=== PATIENT | female | born 1985 | race Caucasian/White ===

== ENCOUNTER 2022-05-22 15:26 | Emergency (ER) | payer OTHER ==
--- OUTSIDE RECORDS SUMMARY | 2022-05-22 15:29 | XMS REPORT | Continuity of Care Document ---
:1985 Author Organization [facility] t Address [address] [place] [id number] Care Team Providers Name Role Phone CHEPE NAVARRO Attending Clinician Unavailable NOEMI TOPETE Attending Clinician Unavailable Lab, Adc Fam Pob I Attending Clinician Unavailable Noemi Kilgore Attending Clinician Black [place] Attending Clinician CHARLEE MEJIA Attending Clinician Unavailable BLACK COOLEY Attending Clinician Unavailable Doctor Unassigned, [place] Attending Clinician Unavailable Payers Payer Name Policy Type Policy Number Effective Date Expiration Date S ozzy BS FED [employer] [id number] 2015 00:00:00 Problems This patient has no known problems. Allergies, Adverse Reactions, Alerts Allergy Allergy Status Severity Reaction(s) Onset Inactive Treating Comm ents Source Name Type Date Date Clinician NO KNOWN Drug Active [facility] ALLERGIE [facility] Social History Social Habit Start Date Stop Date Quantity Comments Source [facility] to SARS-CoV-2 [facility] Smoking Status Start Date Stop Date Source Unknown if ever smoked [facility] Medications This patient has no known medications. Procedures This patient has no known procedures. Encounters Start End Encounter Admission Attending Care Care Encounter Source Date/Time Date/Time Type Type Clinicians Facility Department ID 2020-11-30 2020-11-30 Outpatient R RAMON [facility] [id number] Univers 09:00:00 09:00:00 CHEPE [facility] 2020-03-07 2020-03-07 Outpatient R SUNDEEP [facility] [id number] Univers 15:00:00 15:00:00 NOEMI [facility] 2020-03-07 2020-03-07 Laboratory Lab, [facility] Fam Pob I [facility] [id number]. [id number] Univers 09:10:22 09:30:22 Only Noemi [facility] [id number] [facility] [place] [id number] [place] as Professio [phone] [facility] [address] 2020-02-29 2020-02-29 Laboratory Lab, Adc Fam Pob I [facility] [id number]. [id number] Univers 16:34:24 16:54:24 Only Black Cooley [facility] [id number] [facility] [id number] [place] as Professio [phone] [facility] [address] [facility] 2020-02-29 2020-02-29 Outpatient R JACKIE [facility] [id number] Univers 16:20:00 16:20:00 CHARLEE brown of [facility] 2020-02-29 2020-02-29 Outpatient R VALERIE [facility] [id number] Univers 16:20:00 16:20:00 BLACK brown o f [facility] 2020-02-29 2020-02-29 Letter Doctor ASHLEY [id number] Univers 00:00:00 00:00:00 (Out) Unassigned, AURELIO [id number] [facility] [place] [facility] [id number] [place]is as [phone] [place] [address] Branch Results This patient has no known results.
[2022-05-22] MEDS ORDERED: NA CHLORIDE 0.9% 1,000 ML ONE (16:06)
[2022-05-22] MEDS ORDERED: MORPHINE 2 MG/ML SYR ONE ×2 (16:06→18:12)
[2022-05-22 16:24] LABS: Hematocrit 30.5 % (36.0-45.0); Lymphocytes % 8.3 % (15.3-44.8); MCV 92.2 fL (80-100); MPV 6.6 fL (7.6-11.3); RBC Red Blood Cell Count 3.31 M/uL (3.86-4.86)
[2022-05-22 16:31] LABS: Urine Blood Trace-intact (Negative); Urine Glucose Negative (Negative); Urine Protein Negative (Negative)
[2022-05-22 16:37] LABS: Albumin 2.1 g/dL (3.4-5.0); Bilirubin Total 0.3 mg/dL (0.2-1.0)
[2022-05-22 16:39] LABS: Potassium 2.9 mmol/L (3.5-5.1)
[2022-05-22 16:40] LABS: Urine Bacteria None Seen /HPF (<20); Urine RBC <5 /HPF (None Seen)
--- NOTE | 2022-05-22 17:58 | RAD REPORT ---
EXAM DESCRIPTION: CTAbdomen Pelvis W Contrast - 05/22/2022 5:29 pm CLINICAL HISTORY: Abdominal pain. RLQ PAIN COMPARISON: No comparisons TECHNIQUE: Biphasic CT imaging of the abdomen and pelvis was performed with 100 ml non-ionic IV cont rast. All CT scans are performed using dose optimization technique as appropriate and may include automated exposure control or mA/KV adjustment according to patient size. FINDINGS: The lung bases are clear.Gallbladder distension. The liver, spleen, pancreas, adrenal glands and kidneys are within normal limits. No bowel obstruction, free air, free fluid or abscess. Significantly enlarged uterus compatible with status. The appendix is normal. No evidence of significant lymphadenopathy. No suspicious bony findings. IMPRESSION: Enlarged and edematous uterus. Gallbladder distension.
--- NOTE | 2022-05-22 19:15 | RAD REPORT ---
EXAM DESCRIPTION: US - Abdomen Exam Limited - 05/22/2022 6:39 pm CLINICAL HISTORY: ABD PAIN COMPARISON: No comparisons FINDINGS: The gallbladder demonstrates no gallstones. No pericholecystic fluid or gallbladder wall t hickening. The common bile duct is normal measuring 2 mm. The liver demonstrates no findings of intrahepatic biliary dilatation. IMPRESSION: Unremarkable examination.
[2022-05-22] MEDS ORDERED: HYDROCODONE/APAP 7.5/325 MG TAB ONE (19:25)
[2022-05-22] MEDS ORDERED: KETOROLAC 30 MG/ML INJ ONE (19:25)
[2022-05-22] MEDS ORDERED: POTASSIUM 25 MEQ EFFERV TAB ONE (19:25)
[2022-05-22 20:24] VITALS: TEMP 97.7
[2022-05-22 20:25] VITALS: O2SAT 98
[2022-05-22 20:26] VITALS: BP 143/78
--- NOTE | 2022-05-26 13:16 | EKG ---
Test Date: 2022-05-22 Test Time: 17:43:56 [employer] Sprayer: JACOB MEASUREMENT RESULTS: Intervals: Rate: 91 AR: 144 QRSD: 80 QT: 338 QTc: 415 [place]: P: 46 AR: 144 QRS: 58 T: 47 INTERPRETIVE STATEMENTS: Normal sinus rhythm Low voltage QRS Borderline ECG No previous ECG available for comparison Electronically Signed On 05-26-22 13:09:11 CDT by Domenico Guerra
--- NOTE | 2022-06-06 15:32 | ER ---
Nurse's Notes [facility] Name: Violet Correa Age: 36 yrs Sex: Female : 1985 Arrival Date: 05/22/2022 Time: 15:30 Bed 8 Private MD: Markus Wood E Diagnosis: Lower abdominal pain, unspecified;Abnormal results of liver function studies;Hypokalemia Presentation: 05/22 15:36 Chief complaint: RLQ pain and N/V since yesterday. Pt delivered baby vaginally 4 days hb ago. Coronavirus screen: At this time, the client does not indicate any symptoms associated with coronavirus-19. Ebola Screen: No symptoms or risks identified at this time. Initial Sepsis Screen: Does the patient meet any 2 criteria? No. Patient's initial sepsis screen is negative. Does the patient have a suspected source of infection? No. Patient's initial sepsis screen is negative. Risk Assessment: Do you want to hurt yourself or someone else? Patient reports no desire to harm self or others. Onset of symptoms was May 21, 2022. 15:36 Method Of Arrival: Wheelchair hb 15:36 Acuity: MADELAINE 3 hb Historical: - Allergies: 15:38 Vicodin (Vomiting); hb - PMHx: 15:38 None; hb - PSHx: 15:38 None; hb - Immunization history:: Adult Immunizations up to date. - Social history:: Smoking status: Patient denies any tobacco usage or history of. Screenin:33 [facility] ED Fall Risk Assessment (Adult) Score/Fall Risk Level 0 - 2 = Low Risk ll1 Oriented to surroundings, Maintained a safe environment, Educated pt \T\ family on fall prevention, incl call for assistance when getting out of bed, Hourly rounding (assess needs \T\ fall precautionary measures) done. Abuse screen: Denies threats or abuse. Nutritional screening: No deficits noted. Tuberculosis screening: No symptoms or risk factors identified. Assessment: 14:50 Reassessment: Patient appears in no apparent distress at this time. patient to restroom db via wheelchair. 16:00 General: Appears uncomfortable, Behavior is calm, cooperative, appropriate for age. ll1 Pain: Complains of pain in RLQ Pain currently is 10 out of 10 on a pain scale. Quality of pain is described as aching, sharp. GI: Bowel sounds present X 4 quads. Abd is soft Abdomen is tender to palpation in right lower quadrant. : Reports vaginal bleeding that is moderate flow. 17:22 Reassessment: Patient appears in no apparent distress at this time. patient to CT. db 18:10 Reassessment: No changes from previously documented assessment. ll1 19:20 Reassessment: Patient and/or family updated on plan of care and expected duration. Pain ha1 level reassessed. Patient is alert, oriented x 3, equal unlabored respirations, skin warm/dry/pink. Pain: Complains of pain in right lower quadrant. Respiratory: Airway is patent Respiratory effort is even, unlabored, Respiratory pattern is regular, symmetrical. Vital Signs: 15:36 BP 115 / 79; Pulse 93; Resp 18; Temp 97.7(TE); Pulse Ox 99% on R/A; Weight 81.65 kg; hb Height 5 ft. 4 in. ; Pain 9/10; 16:00 BP 125 / 55; Pulse 67; Resp 16; Pulse Ox 98% on R/A; db 18:22 BP 143 / 78; Pulse 88; ll1 15:36 Body Mass Index 30.90 (81.65 kg, 162.56 cm) hb 15:36 Pain Scale: Adult hb ED Course: 15:30 Patient arrived in ED. am2 15:31 Ray Tafoya PA is PHCP. cp 15:31 Bill Naranjo MD is Attending Physician. cp 15:31 Markus Wood MD is Private Physician. am2 15:38 Triage completed. hb 15:38 Arm band placed on. hb 15:45 Leatha Thompson, CAMILLA is Primary Nurse. ll1 15:45 Patient placed in an exam room, on a stretcher. ll1 16:05 Inserted saline lock: 22 gauge in right antecubital area, using aseptic technique. ll1 Blood collected. 16:25 Speci-cath kit inserted, using sterile technique, 12 Fr., specimen obtained. returned ll1 clear yellow urine. Patient tolerated well. 16:33 Patient has correct armband on for positive identification. Bed in low position. Call ll1 light in reach. 17:31 CT Abd/Pelvis - IV Contrast Only In Process Unspecified. EDMS 18:41 US Abdomen Limited: gallbladder In Process Unspecified. EDMS 19:47 No provider procedures requiring assistance completed. IV discontinued, intact, ha1 bleeding controlled, No redness/swelling at site. Pressure dressing applied. Administered Medications: 16:09 Drug: NS 0.9% IV 1000 ml Route: IV; Rate: 1 bolus; Site: right antecubital; ll1 16:09 Drug: morphine IVP or IV 2 mg Route: IVP; Infused Over: 4 mins; Site: right antecubital;ll1 18:12 Drug: morphine IVP or IV 2 mg Route: IVP; Infused Over: 4 mins; Site: right antecubital;db 19:20 Drug: Potassium PO Effervescent Tablet 50 mEq Route: PO; ha1 19:44 Follow up: Response: No adverse reaction ha1 19:20 Drug: Hydrocodone-Acetaminophen PO (7.5 mg-325 mg) 1 tabs Route: PO; ha1 19:43 Follow up: Response: No adverse reaction; Pain is decreased; RASS: Alert and Calm (0) ha1 19:25 Drug: Potassium PO Effervescent Tablet 25 mEq Route: PO; ha1 19:44 Follow up: Response: No adverse reaction ha1 19:43 Drug: Ketorolac IVP 15 mg Route: IVP; Site: right antecubital; ha1 19:44 Follow up: Response: No adverse reaction ha1 Medication: 16:33 VIS not applicable for this client. ll1 Outcome: 18:58 Discharge ordered by MD. cp 19:47 Discharged to home via wheelchair, with family. ha1 19:47 Condition: stable 19:47 Discharge instructions given to patient, family, Instructed on discharge instructions, follow up and referral plans. medication usage, Demonstrated understanding of instructions, follow-up care, medications. 19:49 Patient left the ED. ha1 Signatures: Dispatcher [employer] EDMS Ray Tafoya PA PA cp Baxter, Heather RN RN oZnia Khan amLeatha Gilbert RN RN 1 Laverne Garcia RN RN ha1 Latisha Singh RN RN db Corrections: (The following items were deleted from the chart) 15:39 15:38 Allergies: PENICILLINS; hb hb
--- NOTE | 2022-06-06 15:32 | EDPHYS ---
Physician Documentation [facility] Name: Violet Correa Age: 36 yrs Sex: Female : 1985 Arrival Date: 05/22/2022 Time: 15:30 Bed 8 Private MD: Markus Wood E ED Physician Blil Naranjo HPI: 05/22 15:53 This 36 yrs old Female presents to ER via Wheelchair with complaints of Abdominal Pain cp - rlq, Nausea/Vomiting. 15:53 The patient presents with abdominal pain right lower quadrant. Onset: The cp symptoms/episode began/occurred yesterday. Associated signs and symptoms: Pertinent positives: nausea, vaginal bleeding, loose stools, Pertinent negatives: constipation, dysuria, fever. The symptoms are described as constant. Modifying factors: the symptoms are aggravated by movement. Severity of pain: in the emergency department the pain is unchanged. 15:55 Patient reports she is 4 days post vaginal delivery of healthy infant with no cp complications. Patient reports continued normal vaginal bleeding . Historical: - Allergies: 15:38 Vicodin (Vomiting); hb - PMHx: 15:38 None; hb - PSHx: 15:38 None; hb - Immunization history:: Adult Immunizations up to date. - Social history:: Smoking status: Patient denies any tobacco usage or history of. ROS: 15:55 Constitutional: Negative for body aches, chills, fever, poor PO intake. cp 15:55 Eyes: Negative for injury, pain, redness, and discharge. cp 15:55 ENT: Negative for ear pain, sore throat, difficulty swallowing, difficulty handling cp secretions. 15:55 Cardiovascular: Negative for chest pain, edema, palpitations. 15:55 Respiratory: Negative for cough, shortness of breath, wheezing. 15:55 Abdomen/GI: Positive for abdominal pain, of the right lower quadrant, Negative for vomiting, diarrhea, constipation. 15:55 Back: Negative for radiated pain. 15:55 : Positive for vaginal bleeding, Negative for urinary symptoms. 15:55 Neuro: Negative for altered mental status, dizziness, headache, syncope, weakness. 15:55 All other systems are negative. Exam: 16:00 Constitutional: The patient appears in no acute distress, alert, awake, non-toxic, well cp developed, well nourished. 16:00 Head/Face: Normocephalic, atraumatic. cp 16:00 Eyes: Periorbital structures: appear normal, Conjunctiva: normal, no exudate, no cp injection, Sclera: no appreciated abnormality, Lids and lashes: appear normal, bilaterally. 16:00 ENT: External ear(s): are unremarkable, Nose: is normal, Mouth: Lips: moist, Oral mucosa: moist, Posterior pharynx: is normal, airway is patent, no erythema, no exudate. 16:00 Chest/axilla: Inspection: normal. 16:00 Cardiovascular: Rate: normal, Rhythm: regular, Edema: is not appreciated, JVD: is not appreciated. 16:00 Respiratory: the patient does not display signs of respiratory distress, Respirations: normal, no use of accessory muscles, no retractions, labored breathing, is not present, Breath sounds: are clear throughout, no decreased breath sounds, no stridor, no wheezing. 16:00 Abdomen/GI: Inspection: gravid appearance, is noted, Bowel sounds: active, all quadrants, Palpation: soft, in all quadrants, moderate abdominal tenderness, in the right lower quadrant, rebound tenderness, is not appreciated, voluntary guarding, is elicited in the right lower quadrant. 16:00 Back: CVA tenderness, is absent. 16:00 Neuro: Orientation: to person, place \T\ time. Mentation: is normal, Motor: moves all fours, strength is normal, Sensation: is normal. 17:50 ECG was reviewed by the Attending Physician. cp Vital Signs: 15:36 BP 115 / 79; Pulse 93; Resp 18; Temp 97.7(TE); Pulse Ox 99% on R/A; Weight 81.65 kg; hb Height 5 ft. 4 in. ; Pain 9/10; 16:00 BP 125 / 55; Pulse 67; Resp 16; Pulse Ox 98% on R/A; db 18:22 BP 143 / 78; Pulse 88; ll1 15:36 Body Mass Index 30.90 (81.65 kg, 162.56 cm) hb 15:36 Pain Scale: Adult hb MDM: 15:47 Patient medically screened. cp 16:00 Differential diagnosis: appendicitis, bowel obstruction, non-specific abd pain, Ovarian cp Torsion, Pelvic Inflammatory Disease, Pyelonephritis, Ureterolithiasis, urinary tract infection. 18:57 Data reviewed: vital signs, nurses notes, lab test result(s), EKG, radiologic studies, cp CT scan, ultrasound. 18:57 Consideration of Admission/Observation Escalation of care including cp admission/observation considered. I considered the following discharge prescriptions or medication management in the emergency department Medications were administered in the Emergency Department. See MAR. Counseling: I had a detailed discussion with the patient and/or guardian regarding: the historical points, exam findings, and any diagnostic results supporting the discharge/admit diagnosis, lab results, radiology results, the need for outpatient follow up, an OB/Gyne specialist, to return to the emergency department if symptoms worsen or persist or if there are any questions or concerns that arise at home. Special discussion: Based on the patient's Hx, exam, and Dx evaluation, there is no indication for emergent surgery or inpatient Tx. It is understood by the patient/guardian that if the Sx's persist or worsen they need to return immediately for re-evaluation. ED course: VSS. Pain improved with meds. Discussed elevated liver enzymes and need for f/u. Will discharge to home for continued monitoring. 05/22 15:53 Order name: CBC with Diff; Complete Time: 16:42 05/22 16:42 Interpretation: Normal except: WBC 12.50; RBC 3.31; HGB 10.4; HCT 30.5; MPV 6.6; RICCO% cp 83.9; LYM% 8.3; NEUT A 10.5. 05/22 15:53 Order name: CMP; Complete Time: 16:42 05/22 16:42 Interpretation: Normal except: K 2.9; CL 109; CRE 0.47; AST 41; ALT 75; ALK 143; CA cp 8.1; TP 6.0; ALB 2.1; GLOB 3.9; A/G 0.5. 03 15:53 Order name: Lipase; Complete Time: 16:42 cp 05/22 15:53 Order name: Urine Microscopic Only; Complete Time: 16:42 cp 05/22 16:43 Interpretation: Reviewed. 05/22 16:32 Order name: Urine Dipstick-Ancillary; Complete Time: 16:42 EDMS 05/22 18:44 Interpretation: Normal except: UBLD Trace-intact. 05/22 15:53 Order name: CT Abd/Pelvis - IV Contrast Only; Complete Time: 18:02 cp 05/22 18:03 Interpretation: Report reviewed. cp 05/22 17:28 Order name: US Abdomen Limited: gallbladder; Complete Time: 19:34 cp 05/22 19:37 Interpretation: Report reviewed. cp 05/22 17:12 Order name: EKG; Complete Time: 17:13 cp 05/22 15:53 Order name: IV Saline Lock; Complete Time: 16:08 cp 05/22 15:53 Order name: Labs collected and sent; Complete Time: 16:08 cp 05/22 15:53 Order name: Urine Dipstick-Ancillary (obtain specimen); Complete Time: 16:31 cp 05/22 15:53 Order name: Cath; Complete Time: 16:31 cp 05/22 17:12 Order name: EKG - Nurse/Tech; Complete Time: 17:35 cp 05/22 17:28 Order name: NPO; Complete Time: 19:44 cp EC:50 Rate is 91 beats/min. Rhythm is regular. SD interval is normal. QRS interval is normal. cp QT interval is normal. T waves are Inverted in lead aVR. Interpreted by me. Reviewed by me. Administered Medications: 16:09 Drug: NS 0.9% IV 1000 ml Route: IV; Rate: 1 bolus; Site: right antecubital; ll1 16:09 Drug: morphine IVP or IV 2 mg Route: IVP; Infused Over: 4 mins; Site: right antecubital;ll1 18:12 Drug: morphine IVP or IV 2 mg Route: IVP; Infused Over: 4 mins; Site: right antecubital; 19:20 Drug: Potassium PO Effervescent Tablet 50 mEq Route: PO; ha1 19:44 Follow up: Response: No adverse reaction ha1 19:20 Drug: Hydrocodone-Acetaminophen PO (7.5 mg-325 mg) 1 tabs Route: PO; ha1 19:43 Follow up: Response: No adverse reaction; Pain is decreased; RASS: Alert and Calm (0) ha1 19:25 Drug: Potassium PO Effervescent Tablet 25 mEq Route: PO; ha1 19:44 Follow up: Response: No adverse reaction ha1 19:43 Drug: Ketorolac IVP 15 mg Route: IVP; Site: right antecubital; ha1 19:44 Follow up: Response: No adverse reaction ha1 Disposition: 05/23 07:02 Co-signature as Attending Physician, Bill Naranjo MD I reviewed the patient's care rn provided by the Advanced Practice Provider and agree with the diagnosis and treatment plan. Disposition Summary: 05/22/22 18:58 Discharge Ordered Location: Home cp Problem: new cp Symptoms: have improved cp Condition: Stable cp Diagnosis - Lower abdominal pain, unspecified cp - Abnormal results of liver function studies cp - Hypokalemia cp Followup: cp - With: Private Physician - When: 2 - 3 days - Reason: Recheck today's complaints Discharge Instructions: - Discharge Summary Sheet cp - Abdominal Pain, Adult cp - Hypokalemia cp - Care After Vaginal Delivery cp Forms: - Medication Reconciliation Form cp - Thank You Letter cp - Antibiotic Education cp - Prescription Opioid Use cp Prescriptions: - Potassium Chloride 10 mEq Oral capsule, extended release - take 2 tablet by ORAL route once daily; 6 tablet; Refills: 0, Product Selection cp Permitted Signatures: Dispatcher [employer] EDBill Marinelli MD MD rn Page, Corey, PA PA cp Yojana Medina RN RN hb Leatha Thompson RN RN 1 Laverne Garcia RN RN ha1 Latisha Singh RN RN db Corrections: (The following items were deleted from the chart) 05/22 15:39 15:38 Allergies: PENICILLINS; hb hb
== END 2022-05-22 19:49 | disposition home or self-care (01) ==
LOC: ER 15:26
DX: R10.31 Right lower quadrant pain (principal); E87.6 Hypokalemia; R94.5 Abnormal results of liver function studies; Z88.5 Allergy status to narcotic agent
CPT/HCPCS: 93005; 85025; 36415; 83690; 80053; 74177; 76705; 96375; 96374; 99284; Q9967; J2270 ×2; J7030; 81003; 81015